=== PATIENT | male | born 1970 | race Hispanic/Latino ===

== ENCOUNTER 2018-03-13 15:07 | Emergency (ER) | payer OTHER ==
[2018-03-13] MEDS ORDERED: KETOROLAC 30 MG/ML INJ ONE (17:09)
--- NOTE | 2018-03-13 17:09 | ER ---
Nurse's Notes [facility] Name: Nayan Lew Age: 47 yrs Sex: Male : 1970 Arrival Date: 03/13/2018 Time: 15:10 Bed 30 Private MD: None, None Diagnosis: Impingement syndrome of left shoulder Presentation: 03/13 15:50 Presenting complaint: Patient states: Reports left anterior shoulder pain that is worse aj with movement. Started 3 days ago. Patient reports doing push ups last week before pain started. Transition of care: patient was not received from another setting of care. Onset of symptoms was March 13, 2018. Risk Assessment: Do you want to hurt yourself or someone else? Patient reports no desire to harm self or others. Initial Sepsis Screen: Does the patient meet any 2 criteria? No. Patient's initial sepsis screen is negative. Care prior to arrival: None. 15:50 Method Of Arrival: Ambulatory aj 15:50 Acuity: GUERA 4 aj 17:34 Initial Sepsis Screen: Does the patient have a suspected source of infection? No. tl3 Patient's initial sepsis screen is negative. Triage Assessment: 15:51 General: Appears in no apparent distress. comfortable, Behavior is calm, cooperative, aj appropriate for age. Pain: Complains of pain in anterior aspect of left shoulder. Neuro: Level of Consciousness is awake, alert, obeys commands, Oriented to person, place, time, situation, Appropriate for age. Respiratory: Airway is patent Respiratory effort is even, unlabored, Respiratory pattern is regular, symmetrical. Derm: Skin is intact, is healthy with good turgor, Skin is pink, warm \T\ dry. normal. Musculoskeletal: Reports pain in anterior aspect of left shoulder. Historical: - Allergies: 15:51 No Known Allergies; aj - Home Meds: 15:51 None [Active]; aj - PMHx: 15:51 None; aj - PSHx: 15:51 Appendectomy; aj - Immunization history:: Adult Immunizations up to date. - Social history:: Smoking status: Patient/guardian denies using tobacco. - Ebola Screening: : Patient negative for fever greater than or equal to 101.5 degrees Fahrenheit, and additional compatible Ebola Virus Disease symptoms Patient denies exposure to infectious person Patient denies travel to an Ebola-affected area in the 21 days before illness onset No symptoms or risks identified at this time. Screenin:32 Abuse screen: Denies threats or abuse. Nutritional screening: No deficits noted. tl3 Tuberculosis screening: No symptoms or risk factors identified. Fall Risk None identified. Assessment: 16:32 General: Appears comfortable, well groomed, well developed, well nourished, Behavior is tl3 calm, cooperative, appropriate for age. Pain: Complains of pain in left arm and anterior aspect of left shoulder. Neuro: No deficits noted. Level of Consciousness is awake, alert, obeys commands. Cardiovascular: No deficits noted. Heart tones S1 S2 present Patient's skin is warm and dry. Respiratory: No deficits noted. Airway is patent Respiratory effort is even, unlabored, Respiratory pattern is regular, symmetrical. GI: No signs and/or symptoms were reported involving the gastrointestinal system. : No signs and/or symptoms were reported regarding the genitourinary system. EENT: No signs and/or symptoms were reported regarding the EENT system. Derm: No signs and/or symptoms reported regarding the dermatologic system. Musculoskeletal: Reports pain in left arm and anterior aspect of left shoulder since Friday, denies any injury. Pain is 9 out of 10 on a pain scale. 17:32 Reassessment: Patient appears in no apparent distress at this time. No changes from tl3 previously documented assessment. Patient and/or family updated on plan of care and expected duration. Pain level reassessed. Patient is alert, oriented x 3, equal unlabored respirations, skin warm/dry/pink. Vital Signs: 15:51 BP 120 / 95; Pulse 90; Resp 16; Temp 98.0; Pulse Ox 98% on R/A; Weight 83.91 kg; Height aj 5 ft. 5 in. (165.10 cm); Pain 7/10; 16:32 BP 148 / 107; Pulse 87; Resp 18; Pulse Ox 98% ; tl3 15:51 Body Mass Index 30.79 (83.91 kg, 165.10 cm) aj ED Course: 15:10 Patient arrived in ED. sb2 15:10 None, None is Private Physician. sb2 15:51 Triage completed. aj 15:51 Arm band placed on left wrist. Patient placed in waiting room, Patient notified of wait aj time. 16:28 Toño Le MD is Attending Physician. gs 16:32 Bryce, Lory, RN is Primary Nurse. tl3 16:32 Patient has correct armband on for positive identification. Call light in reach. NIBP tl3 on. 16:32 No provider procedures requiring assistance completed. Patient did not have IV access tl3 during this emergency room visit. 17:08 Antonio Dominguez MD is Referral Physician. gs 17:15 Shoulder Left (2 View) XRAY In Process Unspecified. EDMS Administered Medications: 17:09 Drug: TORadol 30 mg Route: IM; Site: left gluteus; tl3 17:33 Follow up: Response: Medication administered at discharge. tl3 Outcome: 17:08 Discharge ordered by . gs 17:32 Discharged to home ambulatory. tl3 17:32 Condition: good 17:32 Discharge instructions given to patient, Instructed on discharge instructions, follow up and referral plans. medication usage, Demonstrated understanding of instructions, follow-up care, medications. 17:34 Patient left the ED. tl3 Signatures: Dispatcher [employer] EDMS Reyna Chester RN RN Toño Waddell MD MD Grazyna Wilkins sb2 Lory Garrison, RN RN tl3
--- NOTE | 2018-03-13 17:09 | EDPHYS ---
Physician Documentation [facility] Name: Nayan Lew Age: 47 yrs Sex: Male : 1970 Arrival Date: 03/13/2018 Time: 15:10 Bed 30 Private MD: None, None ED Physician Toño Le HPI: 03/13 16:59 This 47 yrs old Male presents to ER via Ambulatory with complaints of Shoulder gs Pain. 16:59 The patient or guardian complains of an injury, pain, that is acute. left shoulder. gs Context: resulted from repetitive motion, lifting, The patient experiences decreased range of motion. Onset: The symptoms/episode began/occurred 1 week(s) ago, and became worse and became persistent. Modifying factors: The symptoms are aggravated by lifting weight, movement, rotation of arm. Associated signs and symptoms: Pertinent negatives: chest pain, Numbness in left arm. Severity of symptoms: At their worst the symptoms were moderate, in the emergency department the symptoms are unchanged. The patient has not experienced similar symptoms in the past. Historical: - Allergies: 15:51 No Known Allergies; aj - Home Meds: 15:51 None [Active]; aj - PMHx: 15:51 None; aj - PSHx: 15:51 Appendectomy; aj - Immunization history:: Adult Immunizations up to date. - Social history:: Smoking status: Patient/guardian denies using tobacco. - Ebola Screening: : Patient negative for fever greater than or equal to 101.5 degrees Fahrenheit, and additional compatible Ebola Virus Disease symptoms Patient denies exposure to infectious person Patient denies travel to an Ebola-affected area in the 21 days before illness onset No symptoms or risks identified at this time. ROS: 16:59 Constitutional: Negative for fever. gs 16:59 Cardiovascular: Negative for chest pain. 16:59 Respiratory: Negative for shortness of breath. 16:59 All other systems are negative. Exam: 16:59 Head/Face: Normocephalic, atraumatic. Eyes: Pupils equal round and reactive to light, gs extra-ocular motions intact. Lids and lashes normal. Conjunctiva and sclera are non-icteric and not injected. Cornea within normal limits. Periorbital areas with no swelling, redness, or edema. ENT: Nares patent. No nasal discharge, no septal abnormalities noted. Tympanic membranes are normal and external auditory canals are clear. Oropharynx with no redness, swelling, or masses, exudates, or evidence of obstruction, uvula midline. Mucous membranes moist. Neck: Trachea midline, no thyromegaly or masses palpated, and no cervical lymphadenopathy. Supple, full range of motion without nuchal rigidity, or vertebral point tenderness. No Meningismus. Chest/axilla: Normal chest wall appearance and motion. Nontender with no deformity. No lesions are appreciated. Cardiovascular: Regular rate and rhythm with a normal S1 and S2. No gallops, murmurs, or rubs. Normal PMI, no JVD. No pulse deficits. Respiratory: Lungs have equal breath sounds bilaterally, clear to auscultation and percussion. No rales, rhonchi or wheezes noted. No increased work of breathing, no retractions or nasal flaring. Abdomen/GI: Soft, non-tender, with normal bowel sounds. No distension or tympany. No guarding or rebound. No evidence of tenderness throughout. Back: No spinal tenderness. No costovertebral tenderness. Full range of motion. Skin: Warm, dry with normal turgor. Normal color with no rashes, no lesions, and no evidence of cellulitis. Neuro: Awake and alert, GCS 15, oriented to person, place, time, and situation. Cranial nerves II-XII grossly intact. Motor strength 5/5 in all extremities. Sensory grossly intact. Cerebellar exam normal. Normal gait. 16:59 Constitutional: The patient appears alert, awake. 17:04 Musculoskeletal/extremity: ROM: limited active range of motion due to pain, limited gs passive range of motion due to pain, Pulses: are normal with no appreciated deficits, the left arm Sensation intact. Compartment Syndrome exam of affected extremity: is normal. Joints: the left shoulder displays limited range of motion, painful range of motion, tenderness. Vital Signs: 15:51 BP 120 / 95; Pulse 90; Resp 16; Temp 98.0; Pulse Ox 98% on R/A; Weight 83.91 kg; Height aj 5 ft. 5 in. (165.10 cm); Pain 7/10; 16:32 BP 148 / 107; Pulse 87; Resp 18; Pulse Ox 98% ; tl3 15:51 Body Mass Index 30.79 (83.91 kg, 165.10 cm) aj MDM: 16:49 Patient medically screened. 17:04 Differential diagnosis: DJD, tendonitis, sprain. Data reviewed: vital signs, nurses notes. Response to treatment: the patient's symptoms have mildly improved after treatment, and as a result, I will discharge patient. 17:08 Counseling: I had a detailed discussion with the patient and/or guardian regarding: the gs presence of at least one elevated blood pressure reading (>120/80) during this emergency department visit. Special discussion: I have referred the patient to see his PCP for further evaluation of high blood pressure. 03/13 16:53 Order name: Shoulder Left (2 View) XRAY 03/13 17:08 Interpretation: Calcific tendonitis. Administered Medications: 17:09 Drug: TORadol 30 mg Route: IM; Site: left gluteus; tl3 17:33 Follow up: Response: Medication administered at discharge. tl3 Disposition: 03/13/18 17:08 Discharged to Home. Impression: Impingement syndrome of left shoulder. - Condition is Stable. - Discharge Instructions: Rotator Cuff Tendinitis, Managing Your High Blood Pressure. - Prescriptions for Naprosyn 500 mg Oral Tablet - take 1 tablet by ORAL route 2 times per day take with food; 14 tablet. Tylenol- Codeine #4 300-60 mg Oral Tablet - take 1 tablet by ORAL route every 6 hours As needed; 12 tablet. - Medication Reconciliation Form, Thank You Letter, Antibiotic Education, Prescription Opioid Use, Work release form form. - Follow up: Antonio Dominguez; When: 2 - 3 days; Reason: Re-evaluation by your physician. Signatures: Dispatcher [employer] Reyna Dougherty RN RN aj Starr, Gregory, MD MD Lory Garrison RN RN tl3 Corrections: (The following items were deleted from the chart) 17:34 17:08 03/13/2018 17:08 Discharged to Home. Impression: Impingement syndrome of left tl3 shoulder. Condition is Stable. Discharge Instructions: Rotator Cuff Tendinitis, Managing Your High Blood Pressure. Prescriptions for Naprosyn 500 mg Oral Tablet - take 1 tablet by ORAL route 2 times per day take with food; 14 tablet, Tylenol-Codeine #4 300-60 mg Oral Tablet - take 1 tablet by ORAL route every 6 hours As needed; 12 tablet. and Forms are Medication Reconciliation Form, Thank You Letter, Antibiotic Education, Prescription Opioid Use. Follow up: Antonio Dominguez; When: 2 - 3 days; Reason: Re-evaluation by your physician. gs
--- NOTE | 2018-03-13 18:06 | RAD REPORT ---
EXAM DESCRIPTION: RAD - Shoulder Left 2 View - 03/13/2018 5:15 pm CLINICAL HISTORY: Left shoulder pain FINDINGS: No fracture or dislocation is seen. A 15 millimeter calcification adjacent to the lateral aspect of the humeral head probably indicates c alcific tendinitis Mild osteoarthritis involves the acromioclavicular joint
== END 2018-03-13 17:34 | disposition home or self-care (01) ==
LOC: ER 15:07
DX: M75.42 Impingement syndrome of left shoulder (principal)
CPT/HCPCS: 96372; 99283

== ENCOUNTER 2020-11-10 12:13 | Emergency (ER) | payer OTHER, SELFPAY ==
[2020-11-10 16:24] LABS: Urine Blood 2+ (NEG); Urine Glucose NEGATIVE (NEG); Urine Protein NEGATIVE (NEG); Urine pH 5.5 (5.0-7.0)
[2020-11-10 16:27] LABS: Absolute Lymphocytes (CBC) 1.9 K/uL (0.7-4.9); Basophils % 0.6 % (0-1.3); Hematocrit 49.2 % (39.6-49.0); Lymphocytes % 26.4 % (15.3-44.8); MPV 8.3 fL (7.6-11.3); RBC Red Blood Cell Count 5.55 M/uL (4.33-5.43)
[2020-11-10 16:46] LABS: Bilirubin Direct 0.1 mg/dL (0-0.2); Bilirubin Total 0.5 mg/dL (0.2-1.0); Potassium 4.2 mmol/L (3.5-5.1); Protein, Total 8.4 g/dL (6.4-8.2)
--- NOTE | 2020-11-10 16:54 | RAD REPORT ---
EXAM DESCRIPTION: CT - Stone Protocol - 11/10/2020 4:41 pm CLINICAL HISTORY: Flank pain. right flank pain COMPARISON: CTSTONE PROTOCOL dated 12/06/2015 TECHNIQUE: Axial images were obtained without oral or IV contrast. Lack of contrast limits solid org an and vascular assessment. The [id number] spans the entirety of the system partially obscuring uppermost abdomen and lung bases. Coronal reformatted images were obtained and reviewed. All CT scans are performed using dose optimization technique as appropriate and may include automated exposure control or mA/KV adjustment according to patient size. FINDINGS: The lower lung phillips are clear. Imaged portions of the liver and spleen show no suspicious findings on non-contrast imaging. The panc reas and adrenal glands are normal. No pathologic lymphadenopathy in the abdomen or pelvis. Punctate calculus is seen mid-pole right kidney. No hydronephrosis of either kidney. No bowel obstruction, free air, free fluid or abscess. Appendectomy. No significant bony abnormality. IMPRESSION: Punctate calculus right kidney without hydronephrosis.
[2020-11-10] MEDS ORDERED: KETOROLAC 30 MG/ML INJ ONE (18:00)
--- NOTE | 2020-11-10 18:23 | EDPHYS ---
Physician Documentation [facility] Name: Nayan Lew Age: 50 yrs Sex: Male : 1970 Arrival Date: 11/10/2020 Time: 12:24 Bed 16 Private MD: ED Physician Ramy Kwok HPI: 11/10 15:46 This 50 yrs old Male presents to ER via Ambulatory with complaints of Back cp Pain. 15:46 The patient presents with pain that is acute. The symptoms are located in the right mid cp back and right low back. Onset: The symptoms/episode began/occurred 1 month(s) ago. The pain does not radiate. 15:46 Associated signs and symptoms: Pertinent negatives: abdominal pain, constipation, cp dysuria, fever, incontinence, numbness, urinary retention, weakness. The problem was sustained from unknown cause. Modifying factors: the patient symptoms are aggravated by bending, movement. Historical: - Allergies: 12:46 No Known Allergies; ll1 - PSHx: 12:46 Appendectomy; ll1 - Immunization history:: Flu vaccine is not up to date. - Social history:: Smoking status: Patient denies any tobacco usage or history of. ROS: 16:00 Constitutional: Negative for body aches, chills, fever, poor PO intake. cp 16:00 Eyes: Negative for injury, pain, redness, and discharge. cp 16:00 Cardiovascular: Negative for chest pain, palpitations. 16:00 Respiratory: Negative for cough, shortness of breath, wheezing. 16:00 Abdomen/GI: Negative for abdominal pain, nausea, vomiting, and diarrhea, constipation, black/tarry stool, rectal bleeding, bowel incontinence. 16:00 Back: Positive for pain at rest, pain with movement, of the right mid back and right low back. 16:00 : Negative for urinary symptoms, difficulty urinating, bladder incontinence, testicular pain 16:00 Neuro: Negative for altered mental status, dizziness, headache, numbness, weakness. 16:00 All other systems are negative. Exam: 16:05 Constitutional: The patient appears in no acute distress, alert, awake, cp non-diaphoretic, non-toxic, well developed, well nourished. 16:05 Head/Face: Normocephalic, atraumatic. cp 16:05 Eyes: Periorbital structures: appear normal, Conjunctiva: normal, no exudate, no injection, Sclera: no appreciated abnormality, Lids and lashes: appear normal, bilaterally. 16:05 ENT: External ear(s): are unremarkable, Nose: is normal, Mouth: Lips: moist, Oral mucosa: moist, Posterior pharynx: Airway: no evidence of obstruction, patent. 16:05 Neck: ROM/movement: is normal, is supple, without pain, no range of motions limitations. 16:05 Chest/axilla: Inspection: normal. 16:05 Cardiovascular: Rate: normal, Rhythm: regular, Edema: is not appreciated, JVD: is not appreciated. 16:05 Respiratory: the patient does not display signs of respiratory distress, Respirations: normal, no use of accessory muscles, labored breathing, is not present, Breath sounds: are clear throughout, no decreased breath sounds. 16:05 Abdomen/GI: Inspection: abdomen appears normal, Palpation: abdomen is soft and non-tender, in all quadrants, voluntary guarding, is not appreciated, involuntary guarding, is not appreciated. 16:05 Back: pain, that is mild, of the right mid back and right low back, ROM is normal, vertebral tenderness, is not appreciated. 16:05 Skin: no rash present. 16:05 Neuro: Motor: moves all fours, strength is normal, Sensation: is normal, Deep tendon reflexes are 2+ (normal) in the right patellar, right Achilles, left patellar and left Achilles. Vital Signs: 12:45 BP 150 / 98; Pulse 70; Resp 16; Temp 98.1; Pulse Ox 100% ; Weight 83.91 kg; Height 5 ll1 ft. 5 in. (165.10 cm); Pain 5/10; 12:45 Body Mass Index 30.79 (83.91 kg, 165.10 cm) ll1 MDM: 15:48 Patient medically screened. cp 16:00 Differential diagnosis: Cholelithiasis chronic back pain, Pyelonephritis ruptured disc, cp Ureterolithiasis. 18:22 Data reviewed: vital signs, nurses notes, lab test result(s), radiologic studies, CT cp scan. 18:22 Counseling: I had a detailed discussion with the patient and/or guardian regarding: the cp historical points, exam findings, and any diagnostic results supporting the discharge/admit diagnosis, lab results, radiology results, the need for outpatient follow up, a family practitioner, to return to the emergency department if symptoms worsen or persist or if there are any questions or concerns that arise at home. Response to treatment: the patient's symptoms have mildly improved after treatment, and as a result, I will discharge patient. 11/10 15:59 Order name: Basic Metabolic Panel; Complete Time: 17:00 cp 11/10 17:00 Interpretation: Normal except: NA 135; GFR 85. cp 11/10 15:59 Order name: CBC with Diff; Complete Time: 17:00 cp 11/10 15:59 Order name: Hepatic Function; Complete Time: 17:00 cp 11/10 17:00 Interpretation: Normal except: AST 50; ALT 91; TP 8.4; GLOB 4.4; A/G 0.9. cp 11/10 15:59 Order name: Lipase; Complete Time: 17:00 cp 11/10 16:02 Order name: Urine Dipstick--Ancillary (enter results) eb 11/10 16:12 Order name: Urine Dipstick-Ancillary; Complete Time: 17:00 EDMS 11/10 14:04 Order name: Urine Dipstick-Ancillary (obtain specimen); Complete Time: 16:03 kb 11/10 15:59 Order name: CT Stone Protocol; Complete Time: 17:00 cp 11/10 15:59 Order name: IV Saline Lock; Complete Time: 16:12 cp 11/10 15:59 Order name: Labs collected and sent; Complete Time: 16:12 cp Administered Medications: 17:30 Drug: TORadol - Ketorolac 15 mg Route: IVP; Site: right antecubital; iw Disposition: 18:52 Co-signature as Attending Physician, Ramy Kwok MD I agree with the assessment and kdr plan of care. Disposition: 11/10/20 18:23 Discharged to Home. Impression: Low back pain, Calculus of kidney. - Condition is Stable. - Discharge Instructions: Back Pain, Adult, Kidney Stones, Back Exercises. - Prescriptions for Cyclobenzaprine 10 mg Oral Tablet - take 1 tablet by ORAL route every 8 hours As needed; 20 tablet. Diclofenac Sodium 75 mg Oral Tablet, Delayed Release (E.C.) - take 1 tablet by ORAL route 2 times per day; 20 tablet. Lidoderm 5 % Topical adhesive patch,medicated - apply 1 patch by TRANSDERMAL route once daily As needed; 1 box. - Medication Reconciliation Form, Thank You Letter, Antibiotic Education, Prescription Opioid Use form. - Follow up: Private Physician; When: 2 - 3 days; Reason: Worsening of condition. - Problem is new. - Symptoms have improved. Signatures: Dispatcher [employer] [facility] Elida Cortés, WAX PUMPER-C WAX PUMPER-Ramy Orosco MD MD kdr Williams, Irene RN RN iw Camacho Faith PA PA cp Lewis, Lynsay, RN RN ll1 Corrections: (The following items were deleted from the chart) 16:01 15:48 Lumbar Spine 3 Views+[id number] ordered. [facility] 18:43 18:23 11/10/2020 18:23 Discharged to Home. Impression: Low back pain; Calculus of iw kidney. Condition is Stable. Forms are Medication Reconciliation Form, Thank You Letter, Antibiotic Education, Prescription Opioid Use. Follow up: Private Physician; When: 2 - 3 days; Reason: Worsening of condition. Problem is new. Symptoms have improved. cp
--- NOTE | 2020-11-10 18:23 | ER ---
Nurse's Notes [facility] Name: Nayan Lew Age: 50 yrs Sex: Male : 1970 Arrival Date: 11/10/2020 Time: 12:24 Bed 16 Private MD: Diagnosis: Low back pain;Calculus of kidney Presentation: 11/10 12:45 Chief complaint: Patient states: R lower back pain for 1 month. No fever or dysuria. No ll1 N/V/D. Coronavirus screen: Client denies travel out of the [place] in the last 14 days. At this time, the client does not indicate any symptoms associated with coronavirus-19. Ebola Screen: Patient denies travel to an Ebola-affected area in the 21 days before illness onset. Initial Sepsis Screen: Does the patient meet any 2 criteria? No. Patient's initial sepsis screen is negative. Does the patient have a suspected source of infection? Yes: Bone or joint infection. Risk Assessment: Do you want to hurt yourself or someone else? Patient reports no desire to harm self or others. Onset of symptoms was October 10, 2020. 12:45 Method Of Arrival: Ambulatory ll1 12:45 Acuity: GUERA 4 ll1 15:59 Acuity: GUERA 3 iw Triage Assessment: 18:30 General: Appears in no apparent distress. Behavior is calm. Musculoskeletal: Range of iw motion: intact in all extremities. Historical: - Allergies: 12:46 No Known Allergies; ll1 - PSHx: 12:46 Appendectomy; ll1 - Immunization history:: Flu vaccine is not up to date. - Social history:: Smoking status: Patient denies any tobacco usage or history of. Screenin:41 Abuse screen: Denies threats or abuse. Denies injuries from another. Nutritional iw screening: No deficits noted. Tuberculosis screening: No symptoms or risk factors identified. Fall Risk None identified. Assessment: 17:30 General: Appears in no apparent distress. Behavior is calm, cooperative. Pain: iw Complains of pain in right low back and right mid back. Neuro: Level of Consciousness is awake, alert, obeys commands, Oriented to person, place, time, situation, Moves all extremities. Full function. Cardiovascular: Patient's skin is warm and dry. Respiratory: Respiratory effort is even, unlabored, Respiratory pattern is regular. GI:. Derm: Skin is pink, warm \T\ dry. Musculoskeletal: Range of motion: intact in all extremities. 18:40 Reassessment: Patient appears in no apparent distress at this time. Patient and/or iw family updated on plan of care and expected duration. Pain level reassessed. Patient is alert, oriented x 3, equal unlabored respirations, skin warm/dry/pink. Patient states feeling better. Patient states symptoms have improved. Vital Signs: 12:45 BP 150 / 98; Pulse 70; Resp 16; Temp 98.1; Pulse Ox 100% ; Weight 83.91 kg; Height 5 ll1 ft. 5 in. (165.10 cm); Pain 5/10; 12:45 Body Mass Index 30.79 (83.91 kg, 165.10 cm) ll1 ED Course: 12:24 Patient arrived in ED. am4 12:46 Triage completed. ll1 12:46 Arm band placed on. ll1 15:36 Camacho Faith PA is PHCP. cp 15:36 Ramy Kwok MD is Attending Physician. cp 15:44 Jeane Kirk, RN is Primary Nurse. iw 16:07 Inserted saline lock: 20 gauge in left antecubital area, using aseptic technique. Blood jp3 collected. 16:07 Urine collected: clean catch specimen, clear, janine colored. Patient maintains SpO2 jp3 saturation greater than 95% on room air. 16:12 Placed in gown. Bed in low position. Call light in reach. Side rails up X 1. Verbal jp3 reassurance given. Pulse ox on. NIBP on. 16:41 CT Stone Protocol In Process Unspecified. EDMS 18:40 No provider procedures requiring assistance completed. IV discontinued, intact, iw bleeding controlled, No redness/swelling at site. Pressure dressing applied. Administered Medications: 17:30 Drug: TORadol - Ketorolac 15 mg Route: IVP; Site: right antecubital; iw Outcome: 18:23 Discharge ordered by . cp 18:41 Discharged to home ambulatory. iw 18:41 Condition: good 18:41 Discharge instructions given to patient, Instructed on discharge instructions, follow up and referral plans. medication usage, Demonstrated understanding of instructions, follow-up care, medications, Prescriptions given X 3. 18:43 Patient left the ED. iw Signatures: Dispatcher [employer] EDMS Jeane Kirk RN RN iw Camacho Faith PA PA cp Pisarski, Jacob jp3 Donato Bailey RN RN ll1 Saima Higgins am4
[2020-11-10 18:59] VITALS: BP 150/98; TEMP 98.1; O2SAT 100
== END 2020-11-10 18:43 | disposition home or self-care (01) ==
LOC: ER 12:13
DX: N20.0 Calculus of kidney (principal)
CPT/HCPCS: 36415; 74176; 76377; 80048; 80076; 81003; 83690; 85025; 96374; 99284

== ENCOUNTER 2022-03-14 20:33 | Emergency (ER) | payer BC, OTHER ==
[2022-03-14] MEDS ORDERED: KETOROLAC 30 MG/ML INJ ONE (21:07)
--- NOTE | 2022-03-14 21:36 | RAD REPORT ---
EXAM DESCRIPTION: RAD - Shoulder Left 2 View - 03/14/2022 9:27 pm CLINICAL HISTORY: Left shoulder pain FINDINGS: No fracture or dislocation is seen. Calcification superolateral to the humeral head likely indicates calcific tendinitis. Mild narrowing of the AC joint
--- NOTE | 2022-03-14 22:26 | ER ---
Nurse's Notes [facility] Name: Nayan Lew Age: 51 yrs Sex: Male : 1970 Arrival Date: 03/14/2022 Time: 20:38 Bed 19 Private MD: Diagnosis: Pain in left shoulder Presentation: 03/14 20:54 Chief complaint: Patient states: "I got inflammation on this shoulder. It started tw5 yesterday but it has gotten worse. I can hardly lift my arm to my shoulder height. Advil helped a little but the pain is unbearable.". Coronavirus screen: Vaccine status: Patient reports receiving the 2nd dose of the covid vaccine. [employer]. Ebola Screen: Patient negative for fever greater than or equal to 101.5 degrees Fahrenheit, and additional compatible Ebola Virus Disease symptoms Patient denies exposure to infectious person. Patient denies travel to an Ebola-affected area in the 21 days before illness onset. Initial Sepsis Screen: Does the patient meet any 2 criteria? No. Patient's initial sepsis screen is negative. Does the patient have a suspected source of infection? No. Patient's initial sepsis screen is negative. Risk Assessment: Do you want to hurt yourself or someone else? Patient reports no desire to harm self or others. Onset of symptoms was March 13, 2022. 20:54 Method Of Arrival: Ambulatory tw5 20:54 Acuity: GUERA 4 tw5 Triage Assessment: 21:00 General: Appears in no apparent distress. Behavior is calm, cooperative. Pain: Pain at tw5 worst was 10 out of 10 on a pain scale. Aggravated by increased activity. Historical: - Allergies: 21:00 No Known Allergies; tw5 - Home Meds: 21:00 None [Active]; tw5 - PMHx: 21:00 None; tw5 - PSHx: 21:00 Appendectomy; tw5 - Immunization history:: Flu vaccine is not up to date. - Social history:: Smoking status: Patient denies any tobacco usage or history of. Screenin:14 Abuse screen: Denies threats or abuse. Denies injuries from another. Nutritional lg3 screening: No deficits noted. Tuberculosis screening: No symptoms or risk factors identified. Fall Risk None identified. Assessment: 21:14 General: Appears in no apparent distress. comfortable, Behavior is calm, cooperative. lg3 Pain: Complains of pain in left shoulder. Neuro: No deficits noted. Lowe Agitation-Sedation Scale (RASS): 0 - Alert and Calm Level of Consciousness is awake, alert, obeys commands, Oriented to person, place, time, situation. Cardiovascular: No deficits noted. Denies chest pain, shortness of breath, Capillary refill < 3 seconds Clubbing of nail beds is absent JVD is absent Patient's skin is warm and dry. Respiratory: No deficits noted. Airway is patent Trachea midline Respiratory effort is even, unlabored, Respiratory pattern is regular, symmetrical, Breath sounds are clear bilaterally. GI: No deficits noted. No signs and/or symptoms were reported involving the gastrointestinal system. Abdomen is round non-distended. : No deficits noted. No signs and/or symptoms were reported regarding the genitourinary system. EENT: No deficits noted. No signs and/or symptoms were reported regarding the EENT system. Derm: No deficits noted. No signs and/or symptoms reported regarding the dermatologic system. Skin is intact, is healthy with good turgor, Skin is dry, Skin temperature is warm. Musculoskeletal: No deficits noted. Circulation, motion, and sensation intact. Range of motion: limited in left shoulder Reports pain in left shoulder. 22:17 Reassessment: Patient appears in no apparent distress at this time. No changes from lg3 previously documented assessment. Patient and/or family updated on plan of care and expected duration. Pain level reassessed. Patient is alert, oriented x 3, equal unlabored respirations, skin warm/dry/pink. Vital Signs: 20:54 BP 138 / 95; Pulse 18; Resp 18; Temp 98.2; Pulse Ox 100% on R/A; Weight 83.91 kg; tw5 Height 5 ft. 5 in. (165.10 cm); 20:54 Body Mass Index 30.79 (83.91 kg, 165.10 cm) tw5 ED Course: 20:38 Patient arrived in ED. bp1 20:43 Rito Archer PA is PHCP. jmm 20:43 Syed Mendoza DO is Attending Physician. jmm 20:54 Janis Chapin is Primary Nurse. tw5 21:00 Triage completed. tw5 21:14 Patient has correct armband on for positive identification. Bed in low position. Call lg3 light in reach. Side rails up X 1. Client placed on continuous cardiac and pulse oximetry monitoring. NIBP monitoring applied. Door closed. Noise minimized. Warm blanket given. 21:29 Shoulder Left (2 View) XRAY In Process Unspecified. EDMS 22:25 Chao Avina MD is Referral Physician. m 22:37 Arm band placed on right wrist. lg3 22:37 No provider procedures requiring assistance completed. Patient did not have IV access lg3 during this emergency room visit. Administered Medications: 21:14 Drug: Ketorolac 30 mg Route: IM; Site: right gluteus; lg3 21:14 Follow up: Response: No adverse reaction lg3 Medication: 21:14 VIS not applicable for this client. lg3 Outcome: 22:25 Discharge ordered by . m 22:37 Discharged to home ambulatory, with family. lg3 22:37 Condition: stable 22:37 Discharge instructions given to patient, Instructed on discharge instructions, follow up and referral plans. medication usage, Demonstrated understanding of instructions, follow-up care, medications, Prescriptions given X 2. 22:37 Patient left the ED. lg3 Signatures: Dispatcher [employer] EDMS Rito Archer PA PA jmm Gibson, Lacie, RN RN lg3 Kiana Moss Tiffany tw5 Corrections: (The following items were deleted from the chart) 21:01 21:00 PSHx: None; tw5 tw5
--- NOTE | 2022-03-14 22:26 | EDPHYS ---
Physician Documentation [facility] Name: Nayan Lew Age: 51 yrs Sex: Male : 1970 Arrival Date: 03/14/2022 Time: 20:38 Bed 19 Private MD: ED Physician Syed Mendoza HPI: 03/14 20:56 This 51 yrs old Male presents to ER via Ambulatory with complaints of Shoulder jmm Pain, - LT. 20:56 The patient or guardian complains of an injury, pain. Onset: The symptoms/episode jmm began/occurred gradually. Modifying factors: the symptoms are alleviated by nothing. The symptoms are aggravated by movement. This is a 51 year old male with no known chronic medical conditions that presents to the ED with complaints of left shoulder pain. Denies injury. States he performs strenuous activity at work. Patient has had similar episodes in the past. . Historical: - Allergies: 21:00 No Known Allergies; tw5 - Home Meds: 21:00 None [Active]; tw5 - PMHx: 21:00 None; tw5 - PSHx: 21:00 Appendectomy; tw5 - Immunization history:: Flu vaccine is not up to date. - Social history:: Smoking status: Patient denies any tobacco usage or history of. ROS: 20:56 Constitutional: Negative for fever, chills, and weight loss, Cardiovascular: Negative jmm for chest pain, palpitations, and edema, Respiratory: Negative for shortness of breath, cough, wheezing, and pleuritic chest pain. 20:56 MS/extremity: Positive for pain. 20:56 All other systems are negative. Exam: 20:56 Constitutional: This is a well developed, well nourished patient who is awake, alert, jmm and in no acute distress. Head/Face: atraumatic. Eyes: EOMI, no conjunctival erythema appreciated ENT: Moist Mucus Membranes Neck: Trachea midline, Supple Chest/axilla: Normal chest wall appearance and motion. Cardiovascular: Regular rate and rhythm. No edema appreciated Respiratory: Normal respirations, no respiratory distress appreciated Abdomen/GI: Non distended, soft Back: Normal ROM Skin: General appearance color normal 20:56 Musculoskeletal/extremity: Anterior shoulder pain on palpation, pain is elicited on abduction, full radial pulse, full pulpit operator strength, neurovascular intact. 20:56 Skin: Appearance: Color: normal in color. 20:56 Neuro: Orientation: is normal, Mentation: is normal, Memory: is normal. 20:56 Psych: Behavior/mood is pleasant, cooperative. Vital Signs: 20:54 BP 138 / 95; Pulse 18; Resp 18; Temp 98.2; Pulse Ox 100% on R/A; Weight 83.91 kg; tw5 Height 5 ft. 5 in. (165.10 cm); 20:54 Body Mass Index 30.79 (83.91 kg, 165.10 cm) tw5 MDM: 20:56 Patient medically screened. [facility] 21:48 Data reviewed: vital signs, nurses notes. Counseling: I had a detailed discussion with [facility] the patient and/or guardian regarding: the historical points, exam findings, and any diagnostic results supporting the discharge/admit diagnosis, the need for outpatient follow up, to return to the emergency department if symptoms worsen or persist or if there are any questions or concerns that arise at home. 22:34 Counseling: I had a detailed discussion with the patient and/or guardian regarding: [facility] radiology results. 03/14 20:57 Order name: Shoulder Left (2 View) XRAY; Complete Time: 21:40 [facility] Administered Medications: 21:14 Drug: Ketorolac 30 mg Route: IM; Site: right gluteus; lg3 21:14 Follow up: Response: No adverse reaction lg3 Disposition: 03/15 05:13 Co-signature as Attending Physician, Syed Mendoza DO I was immediately available on-site ms3 in the Emergency Department for consultation in the care of the patient.. Disposition Summary: 03/14/22 22:25 Discharge Ordered Location: Home [facility] Condition: Stable [facility] Diagnosis - Pain in left shoulder [facility] Followup: [facility] - With: Chao Avina MD - When: 2 - 3 days - Reason: Recheck today's complaints, Continuance of care, Re-evaluation by your physician Discharge Instructions: - Discharge Summary Sheet [facility] - Shoulder Pain [facility] Forms: - Medication Reconciliation Form [facility] - Thank You Letter [facility] - Antibiotic Education [facility] - Prescription Opioid Use [facility] Prescriptions: - Diclofenac Sodium 75 mg Oral Tablet Sustained Release - take 1 tablet by ORAL route 2 times per day; 30 tablet; Refills: 0, Product [facility] Selection Permitted - orphenadrine citrate 100 mg Oral Tablet Sustained Release - take 1 tablet by ORAL route 2 times per day As needed; 20 tablet; Refills: 0, jmm Product Selection Permitted Signatures: Dispatcher [employer] Rito Valdes PA PA jmm Gibson, Lacie, RN RN lg3 Syed Mendoza DO DO ms3 Janis Chapin tw5 Corrections: (The following items were deleted from the chart) 03/14 21:01 21:00 PSHx: None; tw
[2022-03-14 22:59] VITALS: BP 138/95; TEMP 98.2; O2SAT 100
== END 2022-03-14 22:37 | disposition home or self-care (01) ==
LOC: ER 20:33
DX: M25.512 Pain in left shoulder (principal)
CPT/HCPCS: 96372; 99283